=== PATIENT | male | born 1955 | race Caucasian/White ===

== ENCOUNTER → 2019-09-27 | Outpatient (CLI) | payer MEDICARE, OTHER ==
--- NOTE | 2019-09-27 09:22 | MR ---
EXAMINATION TYPE: MR lumbar spine wo con DATE OF EXAM: 09/27/2019 COMPARISON: NONE HISTORY: Chronic low back pain TECHNIQUE: T1 and T2 axial and sagittal images of the lumbar spine are submitted. FINDINGS: Exam limited by artifact. Assessment spinal cord limited due to artifact. Aorta grossly of normal caliber. At L1-2 there is degenerative disc disease with disc bulging but no canal stenosis. Neural foramina p atent. At L2-3 there is no disc herniation or canal stenosis. No foraminal encroachment. No degenerative dis c disease. At L3-4 there is facet arthropathy and degenerative disc disease with circumferential disc bulging an d mild bilateral foraminal encroachment. Borderline canal stenosis with Mild effacement of thecal sac . At L4-5 there is degenerative disc disease with facet arthropathy and broad-based disc bulging. Mild effacement of thecal sac with mild bilateral foraminal encroachment greater on the left. Borderline c anal stenosis. At L5-S1 there is a focal central disc herniation slightly greater paracentrally to the left. Mild ef facement of thecal sac. Neural foramina patent. Facet arthropathy noted. 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 IMPRESSION: 1. Limited exam due to extensive artifact. Multilevel degenerative disc disease noted with a disc bul ging result in multilevel borderline canal stenosis and mild bilateral foraminal encroachment. 2. Focal central and left paracentral disc small herniation L5-S1. 3. Multilevel facet arthropathy.
[2019-09-27 10:47] LABS: Basophils % (A) 0 %; Eosinophils # (A) 0.2 k/uL (0-0.7); Eosinophils % (A) 3 %; HCT 43.8 % (39.0-53.0); HGB 14.1 gm/dL (13.0-17.5); Lymphocytes # (A) 1.1 k/uL (1.0-4.8); Lymphocytes % (A) 19 %; MCH 30.6 pg (25.0-35.0); MCHC 32.3 g/dL (31.0-37.0); MCV 94.9 fL (80.0-100.0); Mean Platelet Volume 7.5; Monocytes # (A) 0.4 k/uL (0-1.0); Monocytes % (A) 7 %; Neutrophils # (A) 4.1 k/uL (1.3-7.7); Neutrophils % (A) 69 %; Platelet Count 218 k/uL (150-450); RBC 4.61 m/uL (4.30-5.90); RDW 13.3 % (11.5-15.5)
[2019-09-27 12:12] LABS: ALT 25 U/L (4-49); AST 31 U/L (17-59); African American GFR (CKD) >90 (>60 ml/min/1.73 sqM); Albumin 3.9 g/dL (3.5-5.0); Alkaline Phosphatase 86 U/L (38-126); Anion Gap 5 mmol/L; Blood Urea Nitrogen 12 mg/dL (9-20); Calcium 9.1 mg/dL (8.4-10.2); Carbon Dioxide 33 mmol/L (22-30); Chloride 101 mmol/L (98-107); Cholesterol 123 mg/dL (<200); Creatine Kinase 51 U/L (55-170); Glucose 122 mg/dL (74-99); HDL Cholesterol 41 mg/dL (40-60); LDH 460 U/L (313-618); LDL Cholesterol,Calculated 65 mg/dL (0-99); Non-African American GFR(CKD) >90 (>60 ml/min/1.73 sqM); Potassium 4.1 mmol/L (3.5-5.1); Sodium 139 mmol/L (137-145); Total Bilirubin 0.8 mg/dL (0.2-1.3); Total Protein 6.5 g/dL (6.3-8.2); Triglycerides 83 mg/dL (<150)
[2019-09-27 18:57] LABS: Hemoglobin A1C 6.2 % (4.0-6.0)
== END | disposition home or self-care (01) ==
LOC: RADMRIMAIN 08:25
PROVIDERS: ATTEND Family Medicine
DX: M48.061 Spinal stenosis, lumbar region without neurogenic claudication (principal); M51.36 Other intervertebral disc degeneration, lumbar region; M51.26 Other intervertebral disc displacement, lumbar region; M47.816 Spondylosis without myelopathy or radiculopathy, lumbar region; N40.0 Benign prostatic hyperplasia without lower urinary tract symptoms; E78.5 Hyperlipidemia, unspecified; I10 Essential (primary) hypertension; I25.10 Atherosclerotic heart disease of native coronary artery without angina pectoris; Z79.899 Other long term (current) drug therapy
CPT/HCPCS: 72148; 80053; 80061; 82550; 83036; 83615; 83735; 84443; 85025